=== PATIENT | female | born 1960 ===

== ENCOUNTER → 2017-09-23 | Outpatient (CLI) | payer OTHER ==
--- NOTE | 2017-09-23 13:36 | MAMMOGRAPHY REPORT ---
BILATERAL DIGITAL SCREENING MAMMOGRAM TOMOSYNTHESIS WITH CAD: 09/23/2017 CLINICAL HISTORY: Routine screening. Patient has no complaints. TECHNIQUE: The study was acquired using full field digital technology and interpreted from soft copy. Breast tomosynthesis in addition to standard 2D mammography was performed. Current study was also ev aluated with a Computer Aided Detection (CAD) system. COMPARISON: Comparison is made to exams dated: 03/27/2015 mammogram, 09/20/2012 mammogram, 10/02/2011 jackie mogram, 09/18/2011 mammogram, 07/29/2010 mammogram, and 07/27/2009 mammogram - [facility] er. BREAST COMPOSITION: The tissue of both breasts is heterogeneously dense, which may obscure small mass es. FINDINGS: There is a stable grouping of punctate calcifications in the upper outer posterior right br east. No suspicious mass, architectural distortion or cluster of microcalcifications is seen. IMPRESSION: ACR BI-RADS CATEGORY 2: BENIGN There is no mammographic evidence of malignancy. A 1 year screening mammogram is recommended.( [id number]) The patient will receive written notification of the results. Some breast cancers are not detected with mammography. A negative mammographic report should not jose y biopsy if a clinically suggestive mass is present. Valerie Suárez M.D. ay/:09/23/2017 10:04:56 [employer]: RT Saida(R)(M), [facility] letter sent: Normal 1/2 BI-RADS Code: ACR BI-RADS Category 2: Benign
== END ==
LOC: C.MAMM 09:39
PROVIDERS: ATTEND Family Medicine
DX: Z12.31 Encounter for screening mammogram for malignant neoplasm of breast (principal)